=== PATIENT | female | born 1955 | race Caucasian/White ===

== ENCOUNTER 2018-03-11 16:18 | Emergency (ER) | payer OTHER ==
[2018-03-11] MEDS ORDERED: Bacitracin/Neomycin/Polymyxin B Oint 0.9 GM U/D Packet ONE (16:51)
--- NOTE | 2018-03-11 16:52 | EDM.PDOC ---
ED HPI GENERAL MEDICAL PROBLEM - General Chief Complaint: Laceration Stated Complaint: laceration Time Seen by Provider: 03/11/18 16:43 Source of Information: Reports: Patient History Limitations: Reports: No Limitations - History of Present Illness INITIAL COMMENTS - FREE TEXT/NARRATIVE: Patient comes to ER due to skin injury left index finger while working outside. No loss of function, bleeding controlled. Tetanus UTD. No other injuries/ complaints. No numbness/tingling. BP elevated in ER. [place] to be elevated due to discomfort from wound as well as anxiety. - Related Data Allergies Allergy/AdvReac Type Severity Reaction Status Date / Time penicillin Allergy Cannot Verified 06/21/15 14:03 Remember Home Meds: Home Meds Ergocalciferol (Vitamin D2) [Vitamin D2] 2,000 units PO BID 03/11/18 [History] Ubidecarenone [Co Q-10] 100 mg PO DAILY 03/11/18 [History] Venlafaxine [Effexor] 75 mg PO DAILY 03/11/18 [History] amLODIPine [Norvasc] 5 mg PO DAILY 03/11/18 [History] traZODone 50 mg PO BEDTIME 03/11/18 [History] Past Medical History Cardiovascular History: Reports: High Cholesterol, Hypertension Psychiatric History: Reports: Anxiety, Depression Social & Family History - Tobacco Use Smoking Status *Q: Never Smoker Second Hand Smoke Exposure: No - Caffeine Use Caffeine Use: Reports: None - Recreational Drug Use Recreational Drug Use: No ED ROS GENERAL - Review of Systems Review Of Systems: ROS reveals no pertinent complaints other than HPI. ED EXAM, SKIN/RASH Exam: See Below Exam Limited By: No Limitations General Appearance: Alert, WD/WN, No Apparent Distress Eye Exam: Bilateral Eye: EOMI, PERRL Head: Atraumatic, Normocephalic Respiratory/Chest: No Respiratory Distress Extremities: Normal Range of Motion, Normal Capillary Refill Neurological: Alert, Oriented, Normal Cognition, Normal Gait Psychiatric: Normal Affect, Normal Mood Skin: Other (small 10mm by 5mm area tip of left index finger where skin avulsed. No damage to tissue underneath. Tendon function intact. NVI. Hand and fingers otherwise normal in appearance. ) Course - Vital Signs Last Recorded V/S: Last Vital Signs Temp 37.5 C 03/11/18 16:20 Pulse 85 03/11/18 16:20 Resp 18 03/11/18 16:20 BP 181/95 H 03/11/18 16:20 Pulse Ox 98 03/11/18 16:20 - Orders/Labs/Meds Meds: Medications Discontinued Medications Generic Name Dose Route Start Last Admin Trade Name Gen PRN Reason Stop Dose Admin Neomycin/Polymyxin/Bacitracin Confirm 03/11/18 16:51 Triple Antibiotic Oint Administered 03/11/18 16:52 Dose 1 each .ROUTE .STK-MED ONE - Re-Assessments/Exams Free Text/Narrative Re-Assessment/Exam: 03/11/18 17:02 Given the type of injury, unable to approximate wound edge margins together. Nonstick dressing/petroleum gauze dressing and antibiotic ointment applied by nursing staff. Wound will need to granulate in. Instructions/precautions regarding wound care reviewed with patient. BP rechecked and much improved prior to discharge. Patient declined pain medication in ER. Says she will instead take Tylenol once she gets home. Departure - Departure Time of Disposition: 16:50 Disposition: Home, Self-Care 01 Condition: Good Clinical Impression: Avulsion of skin of finger Qualifiers: Encounter type: initial encounter Qualified Code(s): S61.209A - Unspecified open wound of unspecified finger without damage to nail, initial encounter Hypertension Qualifiers: Hypertension type: unspecified Qualified Code(s): I10 - Essential (primary) hypertension - Discharge Information Instructions: Deep Skin Avulsion Referrals: Jazmin Gonzáles, [employer] [Primary Care Provider] - Forms: ED Department Discharge Additional Instructions: Soak finger in normal saline for 10 minutes twice a day and then apply antibiotic ointment and dressing. Wound will granulate in and heal. Follow up if you have concern/signs of infection and get rechecked.
== END 2018-03-11 17:00 | disposition home or self-care (01) ==
LOC: LL.ED 16:18
DX: S61.301A Unspecified open wound of left index finger with damage to nail, initial encounter (principal); I10 Essential (primary) hypertension; Z88.0 Allergy status to penicillin; X58.XXXA Exposure to other specified factors, initial encounter; Y99.0 Civilian activity done for income or pay
CPT/HCPCS: 99282